=== PATIENT | female | born 1965 | race Two or more races ===

== ENCOUNTER 2020-04-30 13:58 | Outpatient (CLI) | payer OTHER | END 2020-04-30 14:00 | disposition home or self-care (01) | LOC: OFIC 805 13:58 | PROVIDERS: ATTEND Otolaryngology Otology & Neurotology | DX: R09.82 Postnasal drip (principal); J34.89 Other specified disorders of nose and nasal sinuses; J31.0 Chronic rhinitis; K21.9 Gastro-esophageal reflux disease without esophagitis ==